=== PATIENT | female | born 1955 | race Caucasian/White ===

== ENCOUNTER 2017-03-05 16:13 | Inpatient (IN) | payer OTHER ==
[~2017-03-05] VITALS: Ht 160 cm; Wt 58.0 kg
[2017-03-05 17:00] LABS: CARBON DIOXIDE (BICARBONATE) 25.1 MEQ/L (20-31)
[2017-03-05 17:01] LABS: HEMOGLOBIN 8.5 G/DL (11.9-15.5); MCH 21.7 PG (29.0-34.0); MCHC 29.3 G/DL (30.0-36.0); MCV 74.2 FL (83-99); RBC DIS.WIDTH-CV 18.6 % (11.8-14.6); RBC DIS.WIDTH-SD 49.7 % (39-53); RED BLOOD COUNT 3.91 M/uL (3.80-5.20)
[2017-03-05 17:05] LABS: CHLORIDE 95 mEq/L (99-109); POTASSIUM 3.1 mEq/L (3.7-5.4); SODIUM 130 mEq/L (136-147)
[2017-03-05 17:07] LABS: GLUCOSE 348 mg/dL (70-99)
[2017-03-05 17:11] LABS: CREATININE 1.1 mg/dL (0.6-1.3); GFR ESTIMATE (CALCULATED) 53 mL/min/
[2017-03-05 17:12] LABS: UREA NITROGEN (BUN) 14 mg/dL (9-23)
[2017-03-05 18:11] LABS: PLAT.SUFFICIENCY VERY DECREASED; PLATELET COUNT 36 K/uL (156-360)
[2017-03-05] MEDS ORDERED: OMEPRAZOLE20 MG PO (18:12)
[2017-03-05] MEDS ORDERED: FUROSEMIDE20 MG PO (18:12)
[2017-03-05] MEDS ORDERED: VITAMIN C W/AC500 M1 PO (18:13)
[2017-03-05] MEDS ORDERED: METFORMIN HCL500 MG PO (18:15)
[2017-03-05] MEDS ORDERED: MELATONIN5 M1 PO (18:17)
[2017-03-05] MEDS ORDERED: BIOTIN2500 MCG PO (18:18)
[2017-03-05] MEDS ORDERED: SPIRONOLACTONE50 MG PO (18:19)
[2017-03-05] MEDS ORDERED: FERROUS SULFAT325 MG PO (18:20)
[2017-03-05] MEDS ORDERED: CONSTULOSE10 GM/15 M PO (18:21)
[2017-03-05] MEDS ORDERED: LANTUS 3 M100 UNITS1 SC (18:23)
[2017-03-05 19:09] LABS: ALBUMIN 3.1 g/dL (3.2-4.8); CHLORIDE 99 mEq/L (99-109); HEMATOCRIT 28.5 % (36.0-46.0); HEMOGLOBIN 8.1 G/DL (11.9-15.5); MCH 21.4 PG (29.0-34.0); MCHC 28.4 G/DL (30.0-36.0); MCV 75.4 FL (83-99); POTASSIUM 3.6 mEq/L (3.7-5.4); RBC DIS.WIDTH-CV 18.7 % (11.8-14.6); RED BLOOD COUNT 3.78 M/uL (3.80-5.20); SODIUM 132 mEq/L (136-147); WHITE BLOOD COUNT 2.8 K/uL (4.1-10.2)
[2017-03-05 19:11] LABS: GLUCOSE 329 mg/dL (70-99)
[2017-03-05 19:12] LABS: TOTAL PROTEIN 6.1 g/dL (6.4-8.3)
[2017-03-05 19:15] LABS: ALKALINE PHOSPHATASE 184 IU/L (3-129); GFR ESTIMATE (CALCULATED) > 59 mL/min/
[2017-03-05 19:16] LABS: UREA NITROGEN (BUN) 13 mg/dL (9-23)
[2017-03-05 19:17] LABS: AST (GOT) 36 IU/L (2-34)
[2017-03-05 19:18] LABS: ALT (GPT) 24 IU/L (3-49)
[2017-03-05 19:39] LABS: IMM.PLATELET FRACTION 7.3 (1-7); PLAT.SUFFICIENCY VERY DECREASED; PLATELET COUNT 35 K/uL (156-360)
[2017-03-05 20:31] VITALS: BP 138/64
[2017-03-05 20:49] LABS: HDL CHOLESTEROL 23 MG/DL (Desirable>=50); LDL CHOLESTEROL 75 mg/dL (Desirable<100); NON-HDL CHOLESTEROL 100 mg/dL (Desirable<160); TOTAL CHOLESTEROL 123 mg/dL (Desirable<200); TRIGLYCERIDES 126 MG/DL (Normal: <150)
[2017-03-05 21:54] LABS: APPEARANCE CLEAR ((CLEAR)); BILIRUBIN NEGATIVE; BLOOD NEGATIVE; COLOR YELLOW ((YELLOW)); GLUCOSE (STRIP) >=500; KETONES 80; LEUKOCYTES NEGATIVE; NITRITE NEGATIVE; PROTEIN (STRIP) NEGATIVE; SPECIFIC GRAVITY 1.022 (1.000-1.030)
[2017-03-05 23:38] VITALS: BP 119/56
[2017-03-06 03:57] VITALS: BP 113/59
[2017-03-06 07:44] LABS: HEMOGLOBIN A1c (GLYCOHEMOGLOB) 12.5 % HGB (Below 5.7)
[2017-03-06 11:37] VITALS: BP 126/60
[2017-03-06 15:46] VITALS: BP 115/55
[2017-03-06 20:01] VITALS: BP 113/60
[2017-03-07 00:30] VITALS: BP 133/60
[2017-03-07 04:01] VITALS: BP 118/67
[2017-03-07 07:18] VITALS: BP 124/62
[2017-03-07 08:57] LABS: HEMOGLOBIN 8.2 G/DL (11.9-15.5); MCH 21.4 PG (29.0-34.0); MCHC 28.3 G/DL (30.0-36.0); MCV 75.5 FL (83-99); RBC DIS.WIDTH-CV 19.2 % (11.8-14.6); RBC DIS.WIDTH-SD 51.8 % (39-53); RED BLOOD COUNT 3.84 M/uL (3.80-5.20)
[2017-03-07 09:12] LABS: CHLORIDE 97 MEQ/L (99-109); GFR ESTIMATE (CALCULATED) > 59 mL/min/; GLUCOSE 335 mg/dL (70-99); POTASSIUM 3.1 MEQ/L (3.7-5.4); SODIUM 132 MEQ/L (136-147); UREA NITROGEN (BUN) 11 mg/dL (9-23)
[2017-03-07 09:26] LABS: WHITE BLOOD COUNT 1.4 K/uL (4.1-10.2)
[2017-03-07 09:33] LABS: IMM.PLATELET FRACTION 5.7 (1-7); PLAT.SUFFICIENCY VERY DECREASED; PLATELET COUNT 35 K/uL (156-360)
[2017-03-07] MEDS ORDERED: LEVETIRACETAM500 MG PO (11:28)
== END 2017-03-07 12:18 | disposition home or self-care (01) | DRG 947 ==
LOC: EME 16:13 → EDOF 17:58 → 5WEST 17:58 → ENRESERV 18:02 → 5WEST 20:17
PROVIDERS: Emergency Medicine; Hospitalist; Nurse Practitioner Family
DX: R41.82 Altered mental status, unspecified (principal); E11.10 Type 2 diabetes mellitus with ketoacidosis without coma; D61.818 Other pancytopenia; F05 Delirium due to known physiological condition; I10 Essential (primary) hypertension; I65.23 Occlusion and stenosis of bilateral carotid arteries; Z60.2 Problems related to living alone; K21.9 Gastro-esophageal reflux disease without esophagitis; K74.60 Unspecified cirrhosis of liver; R56.9 Unspecified convulsions; E11.65 Type 2 diabetes mellitus with hyperglycemia; F10.20 Alcohol dependence, uncomplicated; Y90.9 Presence of alcohol in blood, level not specified; Z79.4 Long term (current) use of insulin; Z82.49 Family history of ischemic heart disease and other diseases of the circulatory system; Z83.3 Family history of diabetes mellitus; Z80.9 Family history of malignant neoplasm, unspecified; Z85.828 Personal history of other malignant neoplasm of skin; Z86.73 Personal history of transient ischemic attack (TIA), and cerebral infarction without residual deficits; Z91.14 Patient's other noncompliance with medication regimen; Z79.84 Long term (current) use of oral hypoglycemic drugs; Z79.82 Long term (current) use of aspirin
CPT/HCPCS: 70498; 70551; 71045; 72141; 76705; 80048; 80053; 80061; 81003; 82140; 82607; 82746; 82803; 82948; 83036; 83735; 84425 90; 84443; 85027; 93005; 93306; 93880; 95819; 99281; 99285; G0378; J1644; J1815; J7030; J7050